=== PATIENT | female | born 1950 | race Caucasian/White ===

== ENCOUNTER 2016-11-25 20:34 | Emergency (ER) | payer BC, MEDICARE ==
[2016-11-25 22:28] LABS: HEMOGLOBIN 13.4 gm/dl (12.3-15.3); RED BLOOD COUNT 4.24 M/UL (4.00-5.10)
== END 2016-11-26 02:50 ==
LOC: ER1 20:34
PROVIDERS: Emergency Medicine
DX: R04.0 Epistaxis (principal); N19 Unspecified kidney failure; E87.5 Hyperkalemia; Z88.2 Allergy status to sulfonamides
CPT/HCPCS: 30901; 80053; 82962; 85025; 85610; 85730; 93005; 96374; 96375; 99284; J0610; J1815; J1940

== ENCOUNTER 2016-12-08 21:15 | Inpatient (IN) | payer MEDICARE, BC ==
[~2016-12-08] VITALS: Ht 162.6 cm; Wt 52.9 kg
[2016-12-08 22:30] LABS: HEMOGLOBIN 10.2 gm/dl (12.3-15.3); RED BLOOD COUNT 3.25 M/UL (4.00-5.10); WHITE BLOOD COUNT 5.7 K/UL (4.5-11.0)
[2016-12-09] MEDS ORDERED: FOLIC ACID 1 MG1 MG PO (03:01)
[2016-12-09] MEDS ORDERED: TRAMADOL HCL50 MG PO (03:03)
[2016-12-09] MEDS ORDERED: COREG 12.5MG12.5 MG PO (03:03)
[2016-12-09] MEDS ORDERED: CYPROHEPTADINE H4 MG PO (03:03)
[2016-12-09] MEDS ORDERED: PREDNISONE10 MG PO (03:04)
[2016-12-09] MEDS ORDERED: CHANTIX0.5 MG PO (03:04)
[2016-12-09] MEDS ORDERED: SINGULAIR10 MG PO (03:04)
[2016-12-09] MEDS ORDERED: SYNTHROID50 MCG PO (03:05)
[2016-12-09] MEDS ORDERED: PAROXETINE HCL20 MG PO (03:05)
[2016-12-09] MEDS ORDERED: PROTONIX 40 MG40 M1 PO (03:05)
--- NOTE | 2016-12-09 19:13 | NUR ---
12/09/16 1854 PATIENT RECIEVING DIALYSIS. O2 SAT 80-82 % WITH O2 AT 3L. NOTIFIED DR. FITZPATRICK OF ASSESSMENT, VITAL SIGNS, AND CURRENT STATUS. NEW ORDERS TO OBTAIN STAT ABG AND CXR. OBTAIN PCU BED STAT. 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 RESPIRATORY NOTIFIED. PATIENT ON NONREBREATHER AT 100% AND DR. FITZPATRICK ON FLOOR IN WITH PATIENT. 12/09/16 1921 PATIENT ON NONREBREATHER WITH RESPIRATORY THERAPIST IN ROOM WITH PATIENT. SP02 SAT 98% WITH NONREBREATHER MASK AT 100% WAITING FOR PCU BED.
[2016-12-10 03:47] LABS: HEMOGLOBIN 10.1 gm/dl (12.3-15.3); RED BLOOD COUNT 3.28 M/UL (4.00-5.10)
[2016-12-11 03:54] LABS: HEMOGLOBIN 10.3 gm/dl (12.3-15.3); RED BLOOD COUNT 3.28 M/UL (4.00-5.10)
[2016-12-11 04:01] LABS: WHITE BLOOD COUNT 10.7 K/UL (4.5-11.0)
[2016-12-12] MEDS ORDERED: NEPRO CARB ST1000 ML PO (14:01)
== END 2016-12-12 15:08 | disposition home or self-care (01) | DRG 189 ==
LOC: ER1 21:15 → M/S 23:32 → ZEROF 23:32 → PROG CARE 23:32 → M/S 12-09 02:00 → PROG CARE 12-09 09:07
PROVIDERS: Emergency Medicine; Internal Medicine; Internal Medicine Infectious Disease; Physician Assistant; ADMIT Internal Medicine
DX: J96.01 Acute respiratory failure with hypoxia (principal); N18.6 End stage renal disease; I12.0 Hypertensive chronic kidney disease with stage 5 chronic kidney disease or end stage renal disease; Z94.4 Liver transplant status; J98.11 Atelectasis; E87.5 Hyperkalemia; R73.9 Hyperglycemia, unspecified; E03.9 Hypothyroidism, unspecified; F41.9 Anxiety disorder, unspecified; Z99.2 Dependence on renal dialysis; Z87.19 Personal history of other diseases of the digestive system; Z90.49 Acquired absence of other specified parts of digestive tract; Z28.21 Immunization not carried out because of patient refusal; Z88.2 Allergy status to sulfonamides; Z79.899 Other long term (current) drug therapy; Z87.891 Personal history of nicotine dependence
CPT/HCPCS: ECHO; 36415; 36600; 71010; 71020; 80048; 80053; 82550; 82553; 82803; 82962; 83036; 83605; 83880; 84484; 85025; 85027; 87040; 90935; 90937; 93005; 93306; 94640; 94664; 96365; 96367; 99291; G0378; J1956; J2543; J2930; J7030; J7050; Q9963

== ENCOUNTER 2017-01-14 19:42 | Emergency (ER) | payer MEDICARE, BC ==
[~2017-01-14 19:42] MED LIST: CHANTIX0.5 MG PO; COREG 12.5MG12.5 MG PO; CYPROHEPTADINE H4 MG PO; FOLIC ACID 1 MG1 MG PO; NEPRO CARB ST1000 ML PO; PAROXETINE HCL20 MG PO; PREDNISONE10 MG PO; PROTONIX 40 MG40 M1 PO; SINGULAIR10 MG PO; SYNTHROID50 MCG PO; TRAMADOL HCL50 MG PO
[2017-01-14 22:02] LABS: HEMOGLOBIN 9.9 gm/dl (12.3-15.3); RED BLOOD COUNT 2.99 M/UL (4.00-5.10); WHITE BLOOD COUNT 14.6 K/UL (4.5-11.0)
== END 2017-01-15 00:55 | disposition home or self-care (01) ==
LOC: ER1 19:42
PROVIDERS: Physician Assistant
DX: R04.0 Epistaxis (principal); D64.9 Anemia, unspecified; N18.6 End stage renal disease; Z99.2 Dependence on renal dialysis; Z88.2 Allergy status to sulfonamides
CPT/HCPCS: 36415; 80053; 85025; 85610; 85730; 86850; 86900; 86901; 99284

== ENCOUNTER → 2017-03-01 | Outpatient (CLI) | payer MEDICARE, BC | LOC: LBRF 10:05 | DX: R19.7 Diarrhea, unspecified (principal) | CPT/HCPCS: 87045; 87046 ==

== ENCOUNTER 2017-03-05 11:55 | Emergency (ER) | payer MEDICARE, BC ==
[2017-03-05 14:13] LABS: HEMOGLOBIN 9.8 gm/dl (12.3-15.3); RED BLOOD COUNT 3.03 M/UL (4.00-5.10); WHITE BLOOD COUNT 19.9 K/UL (4.5-11.0)
== END 2017-03-05 23:07 ==
LOC: ER1 11:55
PROVIDERS: Family Medicine
DX: J18.1 Lobar pneumonia, unspecified organism (principal); J44.9 Chronic obstructive pulmonary disease, unspecified; N18.6 End stage renal disease; E87.6 Hypokalemia; Z87.891 Personal history of nicotine dependence; Z88.2 Allergy status to sulfonamides
CPT/HCPCS: 36415; 71010; 80053; 82550; 82553; 83605; 83874; 83880; 84484; 85025; 87040; 93005; 94664; 96365; 96366; 96367; 99285; J0692; J1956; J3370; J7050